=== PATIENT | female | born 1970 | race Caucasian/White ===

== ENCOUNTER 2020-09-07 08:32 | Day surgery (SDC) | payer OTHER ==
--- NOTE | 2020-09-07 08:07 | HP ---
DATE OF SURGERY: 09/07/2020 HISTORY OF PRESENT ILLNESS: The patient is a 50 year-old female with nausea, vomiting, diarrhea over the past several months or year. Bright red blood per rectum in the past. Family history negative for colon cancer or celiac disease. She did have a nephew that had some Crohn's disease. She has mild right abdomen and some lower pelvic area with pain at times as well. Denies any blood thinner use. PAST MEDICAL HISTORY: Diabetes, hypertension, hypothyroidism, hypercholesterolemia, depression and anxiety. She had some gastroesophageal reflux, thyroid disease, migraines, neuropathy in the past. PAST SURGICAL HISTORY: Cholecystectomy. section. Hysterectomy. Carpal tunnel. Right foot. MEDICATIONS: Advair HFA, Albuterol sulfate, atorvastatin, Basaglar, famotidine, Fenofibrate, ALLERGIES: ERYTHROMYCIN. FAMILY HISTORY: Negative in regards to this problem. SOCIAL HISTORY: No smoking or alcohol abuse. REVIEW OF SYSTEMS: Fourteen systems reviewed per admission assessment. No chest pain or palpitations. Other systems negative or noncontributory as above and per preadmission questionnaire. PHYSICAL EXAMINATION: GENERAL: No acute distress. HEENT: Sclerae nonicteric. NECK: No JVD. CHEST: Equal excursion, nonlabored breathing. CVS: Regular rate and rhythm. ABDOMEN: Soft. No peritoneal signs. EXTREMITIES: No significant edema. NEURO: Alert, oriented, moving extremities symmetrically. PSYCH: Appropriate mood and affect. IMPRESSION: History of nausea, vomiting, diarrhea, occasional rectal bleeding of unclear etiology, needs upper and lower endoscopy to evaluate for gastritis, peptic ulcer disease, celiac disease, colitis, neoplasia, inflammatory bowel disease or other etiology. Risks and benefits explained in detail including but not limited to bleeding or infection, risk of bowel injury or perforation possibly requiring open procedure, risk of missed or nondiagnosis or incomplete exam possibly requiring barium enema, other studies or procedures. General risk of anesthesia or sedation, risk of bowel prep but not limited to, consent obtained. Will proceed with outpatient EGD and colonoscopy.
[2020-09-07] MEDS ORDERED: Lactated Ringers 1,000 ML IV ONE (09:06)
[2020-09-07] MEDS ORDERED: Lactated Ringers 1,000 ML IV SCH (09:30)
[2020-09-07] MEDS ORDERED: Xylocaine-Mpf 2% 5 Ml Vial ONE (10:39)
[2020-09-07] MEDS ORDERED: DIPRIVAN 200 MG/20 ML IV ONE ×2 (10:39→11:02)
[2020-09-07 11:50] VITALS: PULSE 60; O2SAT 95
[2020-09-07 11:57] VITALS: BP 115/67
--- NOTE | 2020-09-08 07:59 | OP ---
SURGERY DATE/TIME: 09/07/2020 1038 PREOPERATIVE DIAGNOSIS: History of some nausea, vomiting, diarrhea, occasional rectal bleeding, need for upper and lower endoscopy for further evaluation. POSTOPERATIVE DIAGNOSES: 1) Minimal to mild gastritis. 2) Very short segment of distal esophagitis. 3) ASA Class III. 4) Prep fair. 5) Small early polyp versus hyperplastic lesion ascending colon, transverse colon, sigmoid colon, rectosigmoid colon and rectum. 6) Internal and external hemorrhoids. 7) A few chronic diverticula. PROCEDURES: 1) EGD with cold biopsy of small bowel to evaluate for celiac sprue. 2) Cold biopsy of antrum to evaluate for Helicobacter pylori. 3) Cold biopsy distal esophagus to evaluate for short segment distal esophagitis. 4) Colonoscopy to terminal ileum. 5) Retrograde ileoscopy. 6) Random cold biopsies of colon to evaluate for microscopic colitis. 7) Hot biopsy removal small early polyp versus hyperplastic lesion ascending colon removed in two pieces in piecemeal fashion. 8) Hot biopsy removal of small early polyps versus hyperplastic lesions sigmoid colon, rectosigmoid colon and rectum. SURGEON: Dr. Arsenio Wadsworth. ANESTHESIA: MAC. ESTIMATED BLOOD LOSS: Minimal. INDICATIONS: As noted above. Risks and benefits explained in detail and not limited to and consent obtained. DESCRIPTION OF PROCEDURE AND FINDINGS: The patient is taken to the endoscopy room. MAC anesthesia introduced. After official time out and no disagreement with planned procedure, bite block positioned. Video gastroscope easily passed down the esophagus through the patent pylorus to the third portion of the duodenum. The third, second and first portion of duodenum grossly unremarkable. Cold biopsy taken to evaluate for celiac sprue. Good hemostasis noted. The scope pulled back in the stomach. She did have some mild gastric erythema consistent with some early minimal to mild gastritis. There is no evidence of any obvious ulcers, polyps or masses. Cold biopsy taken to evaluate for Helicobacter pylori. On retroflex, gastroesophageal junction snug against the scope. No endoscopic visible hiatal hernia at this juncture. Scope straightened and pulled back to gastroesophageal junction noted to be about 40 cm. There was a very short segment of 1.5 mm little inflammation at the gastroesophageal junction consistent with some distal gastroesophagitis very short segment. There were no signs of any Collier's. No signs of any long erosion. Cold biopsy taken to evaluate for path. Good hemostasis noted. The remainder of the esophagus grossly unremarkable. The scope is withdrawn. Attention is then turned to the colonoscopy. She did have some internal and external hemorrhoids. There were no signs of any palpable rectal masses. Video colonoscope inserted and passed up the tortuous sigmoid, descending, transverse colon and ascending colon around to the cecum. With some external pressure given her body habitus, the scope was able to be passed up the terminal ileum which was grossly unremarkable. No signs of any inflammation. The scope is then carefully withdrawn over the next approximately ten minutes stopping to remove a small polyp versus hyperplastic lesion in the proximal ascending colon removed with hot biopsy forceps in two pieces. Good hemostasis noted. It appeared to be completely removed. The scope was then carefully withdrawn. Prep overall was fair. ASA Class III. There was a small early polyp versus hyperplastic lesion in the transverse colon removed with hot biopsy forceps. Another couple in the sigmoid colon, three or four in the rectosigmoid colon as well as one in the rectum. Early polyps versus hyperplastic lesion removed with hot biopsy forceps with brief bursts of cautery. Good hemostasis noted. Otherwise she had some internal and external hemorrhoids. She had a few tiny diverticula. No evidence of any large mouth diverticula at this point. The scope is withdrawn. Some random cold biopsies had been taken in the colon to evaluate for microscopic colitis. Good hemostasis was noted. The patient tolerated the procedure well. There were no immediate complications. Polyps had been removed with hot biopsy forceps. Findings discussed with the family out in the waiting area. I will see her back in the office next week.
== END 2020-09-07 12:00 | disposition home or self-care (01) ==
LOC: SDC 08:32
PROVIDERS: ATTEND Surgery
DX: K29.70 Gastritis, unspecified, without bleeding (principal); R11.2 Nausea with vomiting, unspecified; K20.90 Esophagitis, unspecified without bleeding; K64.8 Other hemorrhoids; K63.5 Polyp of colon; K57.30 Diverticulosis of large intestine without perforation or abscess without bleeding; K62.5 Hemorrhage of anus and rectum; K64.4 Residual hemorrhoidal skin tags; E11.9 Type 2 diabetes mellitus without complications; I10 Essential (primary) hypertension; E03.9 Hypothyroidism, unspecified; E78.00 Pure hypercholesterolemia, unspecified; Z79.899 Other long term (current) drug therapy
CPT/HCPCS: 82947; 88305; 88312; J2704